=== PATIENT | female | born 1995 | race Two or more races ===

== ENCOUNTER 2017-03-29 06:11 | Emergency (ER) | payer OTHER ==
[2017-03-29 09:48] VITALS: BP 132/90
== END 2017-03-29 09:48 | disposition home or self-care (01) ==
LOC: ED 06:11
DX: K59.00 Constipation, unspecified (principal); Z98.82 Breast implant status

== ENCOUNTER 2018-06-29 18:40 | Emergency (ER) | payer SELFPAY ==
[~2018-06-29] VITALS: Ht 170.2 cm; Wt 73.9 kg
[2018-06-29 18:48] VITALS: Ht 170.2 cm; Wt 73.9 kg
[2018-06-29 21:00] LABS: BASOPHIL % 0.2 % (0-2); PLATELET COUNT 248 x10^3mcL (130-400); RED CELL DISTRIBUTION WIDTH 12.3 % (11.5-14.5)
[2018-06-29 21:13] LABS: CHLORIDE SERUM 107 mmol/L (98-107); CREATININE SERUM 0.5 mg/dL (0.6-1.0); GFR1 > 60 mL/min; GLUCOSE SERUM 102 mg/dL (74-106); POTASSIUM SERUM 4.2 mmol/L (3.5-5.1); SODIUM SERUM 143 mmol/L (136-145)
[2018-06-29 21:17] LABS: ALBUMIN 4.3 g/dL (3.4-5.0); ALKALINE PHOSPHATASE 128 U/L (46-116); ALT/SGPT 60 U/L (14-59); AMYLASE 44 U/L (25-115); AST/SGOT 20 U/L (15-37); BILIRUBIN TOTAL 0.4 mg/dL (0.20-1.00); LIPASE 122 IU/L (73-393); TOTAL PROTEIN, SERUM 8.2 g/dL (6.4-8.2)
[2018-06-29 23:28] VITALS: BP 103/57
== END 2018-06-29 23:36 | disposition home or self-care (01) ==
LOC: ED 18:40
PROVIDERS: Emergency Medicine
DX: K29.20 Alcoholic gastritis without bleeding (principal)
CPT/HCPCS: C9113; J2405; J7030